=== PATIENT | female | born 1940 | race Caucasian/White ===

== ENCOUNTER → 2018-05-18 | Outpatient (CLI) | payer MEDICARE, OTHER ==
[~2018-05-18] MED LIST: ALBU2.5V4 IN; AMIO200T PO; AMIT25TA9 PO; AMLO5TAB2 PO; ASCO500C14 PO; BECL8.7A5 IH; ERGO400T3 PO; FISH1CAP15 PO; MAGN400C PO; MELO-198 PO; METAPROLOL; OMEG1CAP24 PO; OMEP40CA36 PO; PRAV40TA PO; SPRN25T GT; SUCR1TAB23 PO; TRAM50TA2 PO; UBID50TA3 PO; WARF4TAB PO; [UNRECOGNIZED DRUG - OTHER]
== END ==
LOC: ONC 10:36
PROVIDERS: ATTEND Internal Medicine Hematology & Oncology
DX: Z08 Encounter for follow-up examination after completed treatment for malignant neoplasm (principal); Z85.3 Personal history of malignant neoplasm of breast; I25.10 Atherosclerotic heart disease of native coronary artery without angina pectoris; I10 Essential (primary) hypertension; E11.9 Type 2 diabetes mellitus without complications; E03.9 Hypothyroidism, unspecified; E78.5 Hyperlipidemia, unspecified; Z79.899 Other long term (current) drug therapy
CPT/HCPCS: 99213